=== PATIENT | male | born 1980 | race African-American/Black ===

== ENCOUNTER 2017-06-12 13:04 | Emergency (ER) | payer OTHER ==
[~2017-06-12] VITALS: Ht 182.9 cm; Wt 66.2 kg
[2017-06-12 13:48] LABS: HEMATOCRIT 41.8 % (42.0-52.0); MANUAL DIFF YES; MCHC 35.9 g/dL (28.0-37.0); MCV 86.5 fL (80.0-100.0); PLATELET COUNT 125 thou/uL (150-400); RBC 4.83 mil/uL (4.50-6.00); WBC 6.5 thou/uL (4.0-11.0)
[2017-06-12 13:58] LABS: CALCIUM 9.4 mg/dL (8.5-10.1); CREATININE 1.1 mg/dL (0.7-1.3)
[2017-06-12 14:07] LABS: ALBUMIN 4.4 g/dL (3.4-5.0); TOTAL BILIRUBIN 6.4 mg/dL (<0.1-1.0); TOTAL PROTEIN 7.9 g/dL (6.4-8.2)
[2017-06-12 14:35] LABS: PLATELET ESTIMATE NORMAL; TOTAL CELL COUNT 100
[2017-06-12 15:18] LABS: URINE BILIRUBIN NEGATIVE (Negative); URINE BLOOD NEGATIVE (Negative); URINE COLOR YELLOW; URINE GLUCOSE-RANDOM* NEGATIVE (Negative); URINE KETONES TRACE (Negative); URINE NITRITE NEGATIVE (Negative); URINE PROTEIN (DIPSTICK) NEGATIVE (Negative)
[2017-06-12] MEDS ORDERED: ONDANSETRON HCL4 M2 PO (15:48)
[2017-06-12] MEDS ORDERED: PEPCID AC20 MG PO (15:48)
[2017-06-12] MEDS ORDERED: CARAFATE 1 GM TA1 G1 PO (15:48)
[2017-06-12 15:59] VITALS: BP 118/79
== END 2017-06-12 16:01 | disposition home or self-care (01) ==
LOC: ER 13:04
PROVIDERS: Physician Assistant
DX: K29.70 Gastritis, unspecified, without bleeding (principal); E86.0 Dehydration; F10.99 Alcohol use, unspecified with unspecified alcohol-induced disorder